=== PATIENT | male | born 1990 | race Caucasian/White ===

== ENCOUNTER 2017-12-19 17:33 | Emergency (ER) | payer OTHER ==
[2017-12-19] MEDS ORDERED: Ondansetron 4 MG Tab.DIS PO ONE (19:12)
[2017-12-19] MEDS ORDERED: Alum Hydrox/Mag Hydrox/Simeth 15 ML, Lidocaine 2% 5 ML PO ONE ×2 (19:13)
--- NOTE | 2017-12-19 19:13 | EDM.PDOC ---
ED HPI GENERAL MEDICAL PROBLEM - General Chief Complaint: Gastrointestinal Problem Stated Complaint: ABDOMINAL PAIN/DIARRHEA/WEAK/VOMITING Time Seen by Provider: 12/19/17 19:08 Source of Information: Reports: Patient - History of Present Illness INITIAL COMMENTS - FREE TEXT/NARRATIVE: HISTORY AND PHYSICAL: History of present illness: 27-year-old male presenting to the emergency department she complained of nausea and vomiting 2 days. Patient states that yesterday began at the to feel nauseous. There is no blood in the vomitus. This has continued. He has been able to keep down some liquids. He has also had a couple episodes of diarrhea. Today he vomited 3 times. Can emergency department secondary to continued symptoms. Denies any fever, chills, malaise, cough, chest pain, shortness breath, syncopal episodes, or focal neurologic deficits. Review of systems: As per history of present illness and below otherwise all systems reviewed and negative. Past medical history: As per history of present illness and as reviewed below otherwise noncontributory. Surgical history: As per history of present illness and as reviewed below otherwise noncontributory. Social history: No reported history of drug or alcohol abuse. Family history: As per history of present illness and as reviewed below otherwise noncontributory. Physical exam: HEENT: Atraumatic, normocephalic, pupils reactive, negative for conjunctival pallor or scleral icterus, mucous membranes moist, throat clear, neck supple, nontender, trachea midline. Lungs: Clear to auscultation, breath sounds equal bilaterally, chest nontender. Heart: S1S2, regular, negative for clicks, rubs, or JVD. Abdomen: nondistended mild tenderness epigastric palpation deep. Negative for masses or hepatosplenomegaly. Negative for costovertebral tenderness. Pelvis: Stable nontender. Genitourinary: Deferred. Rectal: Deferred. Extremities: Atraumatic, negative for cords or calf pain. Neurovascular unremarkable. Neuro: Awake, alert, oriented. Cranial nerves II through XII unremarkable. Cerebellum unremarkable. Motor and sensory unremarkable throughout. Exam nonfocal. Diagnostics: CBC, CMP Therapeutics: Zofran 4 mg by mouth, GI cocktail 1, Bentyl 20 mg by mouth every 6 hours #12 Impression: Viral gastroenteritis Plan: CBC and CMP were unremarkable. Patient most likely has viral gastroenteritis. This was communicated to the patient. He was in full understanding. He was instructed to continue to push fluids. He was also given a prescription for Zofran to take for his nausea. In addition he did have some mild abdominal cramping so was given a prescription for Bentyl. Patient was instructed to return to emergency department if he had any new or worsening symptoms. Patient was discharged in good condition with above instructions and was told to follow- up with his primary care physician. Middle Abdominal Pain Score (Numeric/FACES): 2 ED ROS GENERAL - Review of Systems Review Of Systems: See Below ED EXAM, GENERAL - Physical Exam Exam: See Below Course - Vital Signs Last Recorded V/S: Last Vital Signs Temp 98.5 F 12/19/17 17:50 Pulse 69 12/19/17 17:50 Resp 18 12/19/17 17:50 BP 175/116 H 12/19/17 17:50 Pulse Ox 96 12/19/17 17:50 - Orders/Labs/Meds Labs: Laboratory Tests 12/19/17 12/19/17 Range/Units 19:20 19:20 WBC 7.65 (4.0-11.0) K/uL RBC 5.82 (4.50-5.90) M/uL Hgb 18.3 H (13.0-17.0) g/dL Hct 50.3 H (38.0-50.0) % MCV 86.4 (80.0-98.0) fL MCH 31.4 (27.0-32.0) pg MCHC 36.4 (31.0-37.0) g/dL RDW Std Deviation 38.9 (28.0-62.0) fl RDW Coeff of Trupti 12 (11.0-15.0) % Plt Count 202 (150-400) K/uL MPV 9.60 (7.40-12.00) fL Neut % (Auto) 73.6 (48.0-80.0) % Lymph % (Auto) 19.5 (16.0-40.0) % Mcculloch % (Auto) 6.3 (0.0-15.0) % Eos % (Auto) 0.3 (0.0-7.0) % Baso % (Auto) 0.3 (0.0-1.5) % Neut # (Auto) 5.6 (1.4-5.7) K/uL Lymph # (Auto) 1.5 (0.6-2.4) K/uL Mcculloch # (Auto) 0.5 (0.0-0.8) K/uL Eos # (Auto) 0.0 (0.0-0.7) K/uL Baso # (Auto) 0.0 (0.0-0.1) K/uL Nucleated RBC % 0.0 /100WBC Nucleated RBCs # 0 K/uL Sodium 139 (136-148) mmol/L Potassium 4.3 (3.5-5.1) mmol/L Chloride 101 (98-107) mmol/L Carbon Dioxide 26.8 (21.0-32.0) mmol/L BUN 17 (7.0-18.0) mg/dL Creatinine 1.0 (0.8-1.3) mg/dL Est Cr Clr Drug Dosing 127.62 mL/min Estimated GFR (MDRD) > 60.0 ml/min Glucose 95 (74-106) mg/dL Calcium 9.5 (8.5-10.1) mg/dL Total Bilirubin 1.4 H (0.2-1.0) mg/dL AST 42 H (15-37) IU/L ALT 54 (14-63) IU/L Alkaline Phosphatase 64 (46-116) U/L Total Protein 8.6 H (6.4-8.2) g/dL Albumin 4.7 (3.4-5.0) g/dL Globulin 3.9 H (2.0-3.5) g/dL Albumin/Globulin Ratio 1.2 L (1.3-2.8) Meds: Medications Discontinued Medications Generic Name Dose Route Start Last Admin Trade Name Freq PRN Reason Stop Dose Admin Al Hydroxide/Mg Hydroxide 15 0 ml 12/19/17 19:13 12/19/17 19:40 ml/ Lidocaine HCl 5 ml PO 12/19/17 19:14 20 each ONETIME ONE Administration Ondansetron HCl 4 mg 12/19/17 19:12 12/19/17 19:40 Zofran Odt PO 12/19/17 19:13 4 mg ONETIME ONE Administration Departure - Departure Time of Disposition: 20:22 Disposition: Home, Self-Care 01 Condition: Good Clinical Impression: Viral gastroenteritis - Discharge Information Referrals: PCP,None [Primary Care Provider] - Forms: ED Department Discharge Additional Instructions: My general discharge The following information is given to patients seen in the emergency department who are being discharged to home. This information is to outline your options for follow-up care. We provide all patients seen in our emergency department with a follow-up referral. The need for follow-up, as well as the timing and circumstances, are variable depending upon the specifics of your emergency department visit. If you don't have a primary care physician on staff, we will provide you with a referral. We always advise you to contact your personal physician following an emergency department visit to inform them of the circumstance of the visit and for follow-up with them and/or the need for any referrals to a consulting specialist. The emergency department will also refer you to a specialist when appropriate. This referral assures that you have the opportunity for follow-up care with a specialist. All of these measure are taken in an effort to provide you with optimal care, which includes your follow-up. Under all circumstances we always encourage you to contact your private physician who remains a resource for coordinating your care. When calling for follow-up care, please make the office aware that this follow-up is from your recent emergency room visit. If for any reason you are refused follow-up, please contact the [facility] Emergency Department at and asked to speak to the emergency department charge nurse. [facility] [address] [place] [id number] [id number]
[2017-12-19 19:50] LABS: CHLORIDE,CL 101 mmol/L (98-107); SODIUM,NA 139 mmol/L (136-148)
== END 2017-12-19 20:28 | disposition home or self-care (01) ==
LOC: MW.ED 17:33
DX: A08.4 Viral intestinal infection, unspecified (principal)
CPT/HCPCS: 36415; 80053; 85025; 99284; A9270; 99282

== ENCOUNTER 2024-03-11 08:44 | Emergency (ER) | payer BC ==
[2024-03-11] MEDS: Sodium Chloride 0.9% 1,000 ML IV ONE (09:09)
[2024-03-11] MEDS: Ketorolac 30 MG/ML SDV IVPUSH ONE (09:09)
[2024-03-11 09:10] LABS: BASOPHILS ABSOLUTE AUTO 0.02 K/uL (0.00-0.20); BASOPHILS PERCENT AUTO 0.3 % (0.0-1.0); EOSINOPHILS ABSOLUTE AUTO 0.07 K/uL (0.00-0.45); EOSINOPHILS PERCENT AUTO 1.2 % (0.0-6.0); HEMATOCRIT 41.3 % (42.0-52.0); HEMOGLOBIN 14.3 g/dL (14.0-18.0); IMMATURE GRAN ABSOLUTE AUTO 0.01 K/uL (0.00-0.05); IMMATURE GRAN PERCENT AUTO 0.2 % (0.0-0.4); LYMPHOCYTES ABSOLUTE AUTO 0.57 K/uL (1.00-4.80); LYMPHOCYTES PERCENT AUTO 9.7 % (24.0-44.0); MEAN CORPUSCULAR HEMOGLOBIN 30.2 pg (28.0-32.0); MEAN CORPUSCULAR HGB CONC 34.6 g/dL (32.0-36.0); MEAN CORPUSCULAR VOLUME 87.1 fL (83.0-99.0); MEAN PLATELET VOLUME 9.4 fL (9.4-12.4); MONOCYTES ABSOLUTE AUTO 0.55 K/uL (0.00-0.80); MONOCYTES PERCENT AUTO 9.3 % (0.0-8.0); NEUTROPHILS ABSOLUTE AUTO 4.67 K/uL (1.80-7.70); NEUTROPHILS PERCENT AUTO 79.3 % (41.0-71.0); PLATELET COUNT,PLT 180 K/uL (150-400); RED BLOOD CELL COUNT 4.74 M/uL (4.52-5.90); WHITE BLOOD CELL COUNT,WBC 5.89 K/uL (3.9-11.3)
[2024-03-11 09:12] LABS: APPEARANCE,URINE CLEAR; BILIRUBIN,URINE NEGATIVE (NEGATIVE); COLOR,URINE YELLOW; GLUCOSE,URINE NEGATIVE (NEGATIVE); KETONES,URINE 15 mg/dL (NEGATIVE); LEUKOCYTE ESTERASE,URINE NEGATIVE (NEGATIVE); NITRITE,URINE NEGATIVE (NEGATIVE); OCCULT BLOOD,URINE NEGATIVE (NEGATIVE); PROTEIN,URINE NEGATIVE (NEGATIVE); UROBILINOGEN,URINE 0.2 EU/dL (<2.0)
[2024-03-11 09:38] LABS: A/G RATIO 1.3 (0.9-1.6); ALBUMIN 4.2 g/dL (3.4-5.0); CALCIUM 9.4 mg/dL (8.5-10.1); CARBON DIOXIDE,CO2 30.4 mmol/L (21.0-32.0); CREATININE 0.8 mg/dL (0.8-1.3); EST CRCL DRUG DOSING (CG) 151.2 mL/min; POTASSIUM,K 3.6 mmol/L (3.5-5.1); PROTEIN TOTAL,TP 7.4 g/dL (6.4-8.2)
== END 2024-03-11 10:55 | disposition home or self-care (01) ==
LOC: MW.ED 08:44
DX: R10.11 Right upper quadrant pain (principal)
CPT/HCPCS: 36415; 74176; 80053; 81003; 83690; 85025; 96361; 96374; 99284; J1885; J7030